=== PATIENT | female | born 1935 | race Caucasian/White ===

== ENCOUNTER 2018-04-24 16:22 | Emergency (ER) | payer OTHER ==
[~2018-04-24] VITALS: Ht 154.9 cm; Wt 63.5 kg
[~2018-04-24 16:22] MED LIST: ANTIVERT25 MG PO; CARTIA XT120 MG PO; DURAGESIC25 MCG/HR; SYNTHROID50 MCG
[2018-04-24] MEDS ORDERED: MECLIZINE HCL12.5 MG (17:13)
[2018-04-24] MEDS ORDERED: XARELTO20 MG (17:13)
[2018-04-24] MEDS ORDERED: VITAMIN B122500 MCG (17:14)
[2018-04-24] MEDS ORDERED: PEPCID40 MG (17:14)
[2018-04-24] MEDS ORDERED: FOLIC ACID1 MG (17:14)
[2018-04-24] MEDS ORDERED: SUPER MULTIVIT1 EACH (17:15)
[2018-04-24] MEDS ORDERED: CARTIA XT120 MG (17:15)
[2018-04-25] MEDS ORDERED: MEDROLPACK PO (01:09)
[2018-04-25] MEDS ORDERED: MUCINEX DM ER1 EAC1 PO (01:09)
[2018-04-25] MEDS ORDERED: TESSALON PERLE100 M1 PO (01:09)
[2018-04-25] MEDS ORDERED: LEVALBUTER1.25 MG/3 IH (01:09)
[2018-04-25] MEDS ORDERED: ZITHROMAX500 MG PO (01:09)
[2018-04-25] MEDS ORDERED: BUDESONIDE0.5 MG/2 M IH (01:09)
[2018-04-25] MEDS ORDERED: MAALOX MAXIMUM355 ML PO (01:10)
== END 2018-04-25 01:30 | disposition home or self-care (01) ==
LOC: ER 16:22
DX: J45.901 Unspecified asthma with (acute) exacerbation (principal); J11.1 Influenza due to unidentified influenza virus with other respiratory manifestations